=== PATIENT | male | born 1945 | race Caucasian/White ===

== ENCOUNTER 2017-09-23 21:04 | Emergency (ER) | payer MEDICARE, BC ==
[~2017-09-23] VITALS: Ht 175.3 cm; Wt 89.4 kg
--- NOTE | 2017-09-23 21:16 | NUR ---
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 PT AOX3 RR EVEN AND UNLABORED. NO SOB NOTED. NAD NOTED. NO NVD AT THIS TIME. PT GOWNED AND PLACED ON MONITOR. PER EMS PLACED IV ON LEFT HAND 18G WITH 1L NS TRANFUSING AT THIS TIME. PT NOT DIAPHORETIC. DR. ARMAS AT BEDSIDE FOR EVAL.
--- NOTE | 2017-09-23 21:18 | NUR ---
LAB AT BEDSIDE FOR BLOOD DRAW.
[2017-09-23 21:23] LABS: BASOPHILS # (AUTO) 0.1 /CMM (0.0-0.2); BASOPHILS % (AUTO) 1.3 % (0.0-2.0); EOSINOPHILS # (AUTO) 0.1 /CMM (0.0-0.7); EOSINOPHILS % (AUTO) 1.1 % (0.0-6.0); HEMATOCRIT 40 % (39-51); HEMOGLOBIN 13.5 g/dL (13.5-17.5); LYMPHOCYTES # (AUTO) 2.5 /CMM (0.8-4.8); LYMPHOCYTES % (AUTO) 29.8 % (20.0-44.0); MEAN CORPUSCULAR HEMOGLOBIN 33 PG (26.0-33.0); MEAN CORPUSCULAR HGB CONC 34 g/dl (31.0-36.0); MEAN CORPUSCULAR VOLUME 98 fL (80-96); MONOCYTES # (AUTO) 0.6 /CMM (0.1-1.30); MONOCYTES % (AUTO) 6.8 % (2.0-12.0); NEUTROPHILS # (AUTO) 5.2 /CMM (1.8-8.9); PLATELET COUNT (AUTO) 214 /CMM (150-450); RDW COEFFICIENT OF VARIATION 13.1 (11.5-15.0); RED BLOOD CELL COUNT(AUTO) 4.12 MIL/uL (4.5-6.0); WHITE BLOOD COUNT (AUTO) 8.5 K/uL (4.3-11.0)
[2017-09-23] MEDS ORDERED: IV NS 0.9% 500 ML BAG IV ONE (21:30)
[2017-09-23 21:34] LABS: CALCIUM, SERUM 8.2 mg/dL (8.5-10.1); CARBON DIOXIDE 21 mmol/L (21-32); CHLORIDE 110 mmol/L (98-107); CREATININE 1.3 mg/dL (0.6-1.3); GLUCOSE 183 mg/dL (74-106); POTASSIUM 4.3 mmol/L (3.5-5.1); SODIUM SERUM 142 mmol/L (136-145); UREA NITROGEN, BLOOD 21 mg/dL (7-18)
[2017-09-23 21:43] LABS: TROPONIN I < 0.017 ng/mL (0.00-0.056)
--- NOTE | 2017-09-23 21:51 | NUR ---
DR. ARMAS AT BEDSIDE SPEAKING TO PT
--- NOTE | 2017-09-23 22:10 | NUR ---
IV removed. Catheter intact and site benign. Pressure and 4x4 applied to site. No bleeding noted. Patient discharged to home in stable condition. Written and verbal after care instructions given. Patient verbalizes understanding of instruction. ambulatory with a steady gait. instructed not to drive. pt verbalize understanding. accompanied by
[2017-09-23 22:11] VITALS: BP 124/68
== END 2017-09-23 22:33 | disposition home or self-care (01) ==
LOC: ER 21:06
DX: R55 Syncope and collapse (principal); E11.9 Type 2 diabetes mellitus without complications; E86.0 Dehydration; I95.1 Orthostatic hypotension; F10.129 Alcohol abuse with intoxication, unspecified
CPT/HCPCS: 36415; 80048; 84484; 85025; 93005; 99285; A4606; Z7610